=== PATIENT | male | born 1955 | race Caucasian/White ===

== ENCOUNTER 2021-12-27 19:27 | Emergency (ER) | payer BC ==
[~2021-12-27] VITALS: Ht 177.8 cm; Wt 97.7 kg
[~2021-12-27 19:27] MED LIST: ALEVE220 MG PO; BENICAR; ZOCOR10 MG PO
[2021-12-27 19:32] VITALS: TEMP 97
[2021-12-27 20:23] VITALS: BP 118/80; PULSE 84
== END 2021-12-27 20:23 | disposition home or self-care (01) ==
LOC: COL.ER 19:27
DX: S02.5XXA Fracture of tooth (traumatic), initial encounter for closed fracture (principal); S00.531A Contusion of lip, initial encounter; S09.90XA Unspecified injury of head, initial encounter; S00.81XA Abrasion of other part of head, initial encounter; W10.8XXA Fall (on) (from) other stairs and steps, initial encounter; Y92.096 Garden or yard of other non-institutional residence as the place of occurrence of the external cause; Y93.01 Activity, walking, marching and hiking